=== PATIENT | female | born 1975 | race Caucasian/White ===

== ENCOUNTER 2019-07-30 17:25 | Outpatient (CLI) | payer BC ==
--- NOTE | 2019-07-31 06:12 | Diagnostic Imaging Report ---
PATIENT MR#: [id number] PATIENT PATIENT NAME: MERY MILLS DATE OF : 1975 REFERRING PHYSICIAN: Stephy Cespedes EXAM DATE: 07/30/2019 ACCESSION NUMBER: [id number] EXAM DESCRIPTION: ELBOW 3 VIEWS CLINICAL HISTORY: RT ELBOW PAIN AND KNOT ON OUTER ELBOW COMPARISON: No study for comparison is available at the time of interpretation. TECHNIQUE: DX right elbow, 3 views (images unmarked) Osseous structures: The osseous structures are normal with no evidence of fracture or dislocation. Th ere is no osseous lesion or periosteal reaction. Joint spaces: The bones are well aligned. No articular surface abnormality is noted. Soft tissues: There is normal appearance of the soft tissues with no radiopaque foreign body seen. IMPRESSION: Normal elbow radiographs. Read by: Dr. David Hogan Transcribed by: David Hogan Transcribed Date: 07/31/2019 6:11:44 AM Electronically signed by: Dr. David Hogan Date signed: 07/31/2019 6:11:44 AM
== END 2019-07-30 17:35 ==
LOC: RAD 17:25
PROVIDERS: ATTEND Nurse Practitioner Family
DX: M25.521 Pain in right elbow (principal)
CPT/HCPCS: 73080